=== PATIENT | female | born 1940 | race American Indian/Alaskan Native ===

== ENCOUNTER 2018-03-27 08:50 | Day surgery (SDC) | payer OTHER, BC ==
--- NOTE | 2018-03-26 14:55 | RAD REPORT ---
EXAM DESCRIPTION: RAD - Chest Pa And Lat (2 Views) - 03/26/2018 2:45 pm CLINICAL HISTORY: Preop chest, pending soft tissue mass removal from the left axilla COMPARISON: None. TECHNIQUE: PA and lateral views of the chest were obtained. FINDINGS: The lungs are clear of a peripheral mass, consolidation or failure finding. Interstitial m arkings are mildly prominent believed to be baseline. Heart size is normal and central vasculature is within normal limits. No pleural effusion or pneumothorax seen. No acute bone findings seen. Pat ient has thoracolumbar scoliotic curvature. No aortic abnormality. IMPRESSION: No acute cardiopulmonary process.
--- NOTE | 2018-03-26 15:26 | EKG ---
Test Date: 2018-03-26 Test Time: 14:34:30 [place] Electronic: PIPPA MEASUREMENT RESULTS: Intervals: Rate: 64 PA: 178 QRSD: 82 QT: 430 QTc: 443 [place]: P: 43 PA: 178 QRS: 20 T: 75 INTERPRETIVE STATEMENTS: Sinus rhythm with marked sinus arrhythmia Otherwise normal ECG Compared to ECG 02/09/2003 10:24:00 Sinus bradycardia no longer present Atrial abnormality no longer present T-wave abnormality no longer present Myocardial infarct finding no longer present Electronically Signed On 03-26-18 15:25:10 CDT by Paulo Nazario
[2018-03-26 16:18] LABS: Absolute Lymphocytes (CBC) 1.3 K/uL (0.7-4.9); Absolute Monocytes 0.7 K/uL (0.1-1.3); Absolute Neutrophil 3.4 K/uL (1.8-8.0); Basophils % 1.3 % (0-1.3); Eosinophils % 4.1 % (0-4.4); Hematocrit 38.1 % (36.0-45.0); MCH 32.6 pg (27.0-35.0); MCV 96.8 fL (80-100); MPV 9.8 fL (7.6-11.3); Monocytes % 12.5 % (3.3-12.3); RBC Red Blood Cell Count 3.94 M/uL (3.86-4.86)
[2018-03-26 16:37] LABS: Potassium 3.9 mmol/L (3.5-5.1)
[2018-03-27] MEDS ORDERED: MIDAZOLAM HCL 2 MG/2 ML INJ ONE (09:23)
[2018-03-27] MEDS ORDERED: FENTANYL CITR 100 MCG/2 ML ONE (09:24)
[2018-03-27] MEDS ORDERED: PROPOFOL 200 MG/20 ML VIAL IV ONE (09:24)
[2018-03-27] MEDS ORDERED: LIDOCAINE 2% MPF 5 ML VIAL ONE (09:24)
[2018-03-27] MEDS ORDERED: ONDANSETRON HCL 40 MG/20 ML VIAL ONE (09:25)
[2018-03-27] MEDS ORDERED: NA CHLORIDE 0.9% 1,000 ML ONE (09:33)
[2018-03-27] MEDS ORDERED: CEFAZOLIN/SWI 1gm 1 GM/10 ML SYR ONE (09:38)
[2018-03-27] MEDS ORDERED: CEFAZOLIN SODIUM 1 GM/VIAL ONE (09:54)
--- NOTE | 2018-03-27 10:19 | P.BOP ---
Preoperative diagnosis: left upper arm subQ ulcerated mass 4.5 x 3 cm Postoperative diagnosis: same Primary procedure: Wide excision of left upper arm subQ ulcerated mass 4.5 x 3 cm Instructor Of Education: NONE,NONE Estimated blood loss: <10cc Specimen: mass Findings: mass Anesthesia: General Complications: Other Transferred to: Recovery Room Condition: Good
[2018-03-27] MEDS ORDERED: TRAMADOL 37.5mg/APAP 325mg PER TAB ONE (11:32)
--- NOTE | 2018-03-27 19:35 | DS ---
Date of Discharge: 03/27/2018 Diagnosis: Left upper back subcutaneous ulcerated mass. Procedure: Wide excisional of left upper back subcutaneous ulcerated mass, 4.5 x 3 cm. Disposition: Home. Activities: As tolerated. No heavy lifting. Followup: Follow up in my office in 1 week. Call for appointment on [phone]. For medications see orders. Keep area dry for 48 hours, then may shower. SHIVA/JUNE Voice ID: [id number] Report ID: [id number]
--- NOTE | 2018-03-27 19:35 | OP ---
Date of Procedure: 03/27/2018 Surgeon: Shayne Berrios MD Sprinkler Inspector: None. Preoperative Diagnosis: Left upper back subcutaneous ulcerated mass, 4.5 x 3 cm. Postoperative Diagnosis: Left upper back subcutaneous ulcerated mass, 4.5 x 3 cm. Procedures: Wide excision of left upper mass subcutaneous ulcerated mass, 4.5 x 3 cm. Estimated Blood Loss: Less than 10 cc. Specimen: Ulcerated mass. Indications: This is the case of a 77-year-old patient, comes with an ulcerated mass. The patient h as history of a surgery there many years ago with some complications under repair. She was doing wel l, but then recently started with ulceration over the incision and away from it. The mass was identi fied. It was hard, was tender, ulcerated, so we offered her a wide excision of that mass to go all t he way down to subcutaneous tissue with benefits, alternatives, and risks including, but not limited to infection, bleeding, damage to adjacent structures, anesthesia complication, recurrence, VT, and e andres . She also understands this may not relieve any symptoms. She might need more than one caterina gical intervention. She understood, signed a consent. The area of concern was marked by me and the patient in the holding room. Description Of Procedure: The patient was brought to the operating room, placed in supine position. Anesthesia was done without complication. Left arm was prepped and draped in usual sterile fashion. Local anesthesia was applied. We had to remove this in a wedge fashion. The defect is large about 4.5 x 3 cm once we finished, so we have to close this in layers. The mass was completely excised. The area was irrigated. Hemostasis obtained and we proceeded to close the lower layers with a combin ation of 3-0 chromic, then mid-layers 3-0 nylon, and then the skin with a 3-0 nylon in running fashio n. The patient tolerated the procedure well. The patient was sent to recovery room in [facility]. SHIVA/JUNE Voice ID: [id number] Report ID: [id number]
== END 2018-03-27 12:24 | disposition home or self-care (01) ==
LOC: OR 08:50
PROVIDERS: ATTEND Surgery
PROC: 0JB70ZZ Excision of Back Subcutaneous Tissue and Fascia, Open Approach (ICD-10-PCS; principal; 2018-03-27 10:30)
DX: L90.5 Scar conditions and fibrosis of skin (principal); E11.9 Type 2 diabetes mellitus without complications; I10 Essential (primary) hypertension; E07.9 Disorder of thyroid, unspecified; Z88.6 Allergy status to analgesic agent; Z82.49 Family history of ischemic heart disease and other diseases of the circulatory system; Z83.3 Family history of diabetes mellitus; Z80.0 Family history of malignant neoplasm of digestive organs; Z80.49 Family history of malignant neoplasm of other genital organs
CPT/HCPCS: 11406; 36415; 71046; 80048; 82962 ×2; 85025; 88304; 93005; J0690 ×2; J2250; J2405; J3010; J7030; 88305